=== PATIENT | female | born 1990 | race Asian ===

== ENCOUNTER → 2017-05-23 08:22 | Day surgery (SDC) | payer OTHER ==
--- NOTE | 2017-05-12 | HP ---
PREOPERATIVE HISTORY AND PHYSICAL: DATE OF ADMISSION/SURGERY: 05/23/17 ATTENDING SURGEON: Rose Curry MD. * (DICTATED BY HONEY RIOS) PROCEDURE: Right knee arthroscopy, possible meniscus repair, anterior cruciate ligament reconstruction using bone patellar tendon bone autograft. CHIEF COMPLAINT: Right knee pain and instability. 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 She has failed conservative measures and has therefore, agreed to undergo a right knee arthroscopy, possible meniscus repair and anterior cruciate ligament reconstruction using bone patellar tendon bone autograft with Dr. Curry on 05/23/17. PAST MEDICAL HISTORY: Denies current problems. PAST SURGICAL HISTORY: No prior surgeries. CURRENT MEDICATIONS: control. ALLERGIES: SULFA DRUGS. FAMILY HISTORY: Denies pertinent family history. SOCIAL HISTORY: She lives by herself. 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 She drinks occasional alcohol. She denies tobacco use. She is right hand dominant. REVIEW OF SYSTEMS: A 14-point review of systems was reviewed with the patient. Positive for the current complaint, otherwise negative. PHYSICAL EXAMINATION GENERAL: Well-developed, well-nourished 26-year-old female, in no acute distress. Alert and oriented x3. Appropriate mood and affect. VITAL SIGNS: Height 64.5, weight 162. Pulse 66, blood pressure 104/62, respiratory rate 16. BMI 27.4. HEENT: Normocephalic, atraumatic. PERRLA. Throat clear. NECK: Supple. PULMONARY: Lungs are clear to auscultation bilaterally. No wheezing, rhonchi, or rales. CARDIOVASCULAR: Regular rate and rhythm. S1 and S2. No murmurs, gallops, or rubs. No edema. ABDOMEN: Positive bowel sounds, soft, nontender. NEUROLOGIC: Alert and oriented x3. Cranial nerves grossly intact. Sensation intact to light touch. MUSCULOSKELETAL: Right lower extremity skin is intact. No warmth or erythema. Mild effusion. Tenderness over the medial joint line, nontender laterally. Range of motion 0 to 125. Positive Lucy. 2A Shellie. Negative posterior drawer. Stable to varus and valgus stress. Calves soft and nontender. +2 dorsalis pedis pulse. Sensation intact to light touch distally. STUDIES: MRI of the right knee reveal high-grade partial thickness tear of the ACL and a medial meniscus tear. IMPRESSION: Right knee ACL tear, medial meniscus tear. PLAN: The patient is scheduled to undergo a right knee arthroscopy, possible meniscus repair, and anterior cruciate ligament reconstruction with Dr. Curry on 05/23/17. She will return to the office 8 days postop for followup and suture removal. Percocet will be used for postop pain management and Keflex for antibiotic prophylaxis. HONEY RIOS [id number]/[facility] #: [id number] EVELIA
[~2017-05-23 08:22] MED LIST: Buffered Lidocaine 0.9% SYRIN* 5 ML/SYR SYRINGE INTRADERM ONE; Buffered Lidocaine 0.9% SYRIN* 5 ML/SYR SYRINGE ONE; Bupivacaine 0.25% SDV* 30 ML ONE; Dexamethasone IV* 4 MG/ML 1 ML (4 MG) ONE; Famotidine IV* 10 MG/ML 2 ML (20 mg) IV ONE; Famotidine IV* 10 MG/ML 2 ML (20 mg) ONE; KETAMINE HCL* 50 MG/ML 10 ML VIAL ONE; Ketorolac INJ* 30 MG/ML 1 ML VIAL ONE; Lidocaine 2% PF * 5 ML VIAL ONE; Midazolam* 1 MG/ML 5 ML VIAL (5 MG) ONE; Morphine INJ* 10 MG/ML 1 ML SYRINGE ONE; Morphine INJ* 2 MG/ML 1 ML SYRINGE IV PRN; Ondansetron INJ* 2 MG/ML VIAL ONE; PROCHLORPERAZINE INJ 5 MG/ML 2 ML VIAL IV PRN; PROCHLORPERAZINE INJ 5 MG/ML 2 ML VIAL ONE; Propofol* 10 MG/ML 20 ML BTL IV PUSH ONE; Scopolamine 1.5 mg* PATCH ONE; Scopolamine 1.5 mg* PATCH TRANSDERM PRN; Scopolomine PATCH Remove* 1 NOTE MISC PATCH OFF ONE; ceFAZolin 2 GM PREMIX (*) 50 ML IVPB ONE; fentaNYL* 50 MCG/ML 2 ML VIAL (100 MCG VIAL) ONE; oxyCODONE/Acetamin 5/325 MG* TAB ONE; oxyCODONE/Acetamin 5/325 MG* TAB PO PRN
[2017-05-23] MEDS: fentaNYL* 50 MCG/ML 2 ML VIAL (100 MCG VIAL) IV PRN ×4 (12:56→13:14)
[2017-05-23 15:07] VITALS: BP 123/69
--- NOTE | 2017-05-24 05:40 | OP ---
DATE OF OPERATION: 05/23/17 [facility] DATE OF : 89 SURGEON: Rose Curry MD HAND CEMENTER: HONEY Sinclair. The traffic assistant was needed for the entirety of the case to help with positioning, retraction, and was utilized throughout all portion of the case. ANESTHESIOLOGIST: Dr. Lopez. ANESTHESIA: General. PRE-OP DIAGNOSIS: Right knee grade 3 ACL rupture with medial meniscus tear. POST-OP DIAGNOSIS: Grade 3 ACL rupture, medial meniscus tear, lateral meniscus fraying. OPERATIVE PROCEDURE: Right knee arthroscopy with ACL reconstruction using BTB autograft, medial meniscus repair, partial lateral meniscectomy. COMPLICATIONS: None. ESTIMATED BLOOD LOSS: Minimal. TOURNIQUET TIME: 250 mmHg for 29 minutes. IMPLANTS USED: Langston [employer] Nephew SoftSilk, 7 x 25 and 9 x 25 as well as 1 Fast Fix 360. 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 She elected to proceed with operative treatment including ACL reconstruction with autograft. Risks and benefits of surgery were discussed at length including, but not limited to bleeding, infection, damage to nerves, vessels, surrounding structures, the wound nonhealing, risk of pain, risk of anesthesia, risk of DVT, scarring, stiffness, incomplete relief of symptoms, need for further surgery, failure to repair. She has elected to proceed. DESCRIPTION OF PROCEDURE: The patient was greeted in the preoperative area by the attending surgeon. The correct extremity was marked and consent was confirmed. The patient was then brought back to the operating suite where she was placed in supine position on the operating table. She then underwent general anesthesia and LMA intubation, after which she was positioned low on the bed, the lateral post was positioned, an unsterile tourniquet was placed high on the proximal thigh and a small 10-pound beanbag was placed at the foot of the bed to keep the knee at 90 degrees. The right knee was prepped and draped in usual sterile fashion beginning with chlorhexidine soap, scrub, and alcohol wipe and a final prep of ChloraPrep. After appropriate surgical pause indicating side, site, procedure, and administration of antibiotics, the knee was intraarticularly injected with 30 cc of sterile saline. The Esmarch was used to exsanguinate the limb. A midline incision over the patellar tendon was then made sharply with a 15 blade. Soft tissues were carefully dissected to expose the paratenon, which was taken in separate layer for later closure. The tendon was exposed and found to be about 30 mm in length. The center 10 mm were then harvested using a 10 blade. Once the soft tissue was then harvested, the bone blocks were prepared to lock for a size 9 x 23 mm, patellar bone blocks. This was outlined using electrocautery device and then the sagittal saw. Inferiorly, the bone block from the tibial tubercle was 10 x 30 mm. Once this was obtained, the graft was secured on the back table to allow for appropriate sized tunnel. A whipstitch was placed through the tibial end of the grasp and #5 Ethibond sutures were passed through the bone block on the patellar side as well as one on the tibial side. This was then wrapped in damp saline soaked gauze and kept on the back table. This was all done while the traffic assistant was closing the patellar tendon in an interrupted fashion. Once that was complete, the tourniquet was released for a total time of 29 minutes. The lateral portals were made through the capsule. Using 11 blade, scope was brought to the joint and the joint was examined. The patellofemoral joint had grade 0 to 1 changes, there was abundant synovitis anteriorly. The anterior medial portal was made in an outside-in fashion with needle localization. Once this was done, the shaver was then used to move the synovitis anteriorly. The ACL was identified and there was small remnant that was still intact, but 80% or more of the tendon had torn off the femoral surface. The biters and dylan were used to debride the stump pad as well as to remove the ACL, the lateral wall was prepared using the electrocautery device. There was a rather narrow notch posteriorly, therefore the kenn was then used to do a small notchplasty, all the debris was removed after the notchplasty was complete. At this point, the scope was positioned in the suprapatellar pouch and there were grade 0 to 1 changes of the patella and the trochlea. Medial and lateral gutters were checked and without any loose body. The scope was positioned in the medial joint and there was a meniscus tear in the red-white zone, this was aggravated, and there was small areas of bleeding, therefore decision was made to repair this. This was an unstable tear subluxing the joint that was full thickness. One Langston and Nephew Fast Fix was then used to stabilize this. The remainder of the meniscus was intact. The knee was then placed in a [id number] position and the lateral tibial plateau had a small area of grade 1 chondral changes that was debrided back, a small chondroplasty was done and a lateral meniscal repair had mild unstable tearing along the posterior root, evidence of a previous tear that had healed back. The unstable flap was then debrided back using the shaver as well as the small fraying of the body. The lateral femoral condyle had grade 0 changes. The knee was then placed to 90 degrees, a [place] awl was used to harrison the presumed femoral position as a rate examiner hole. This was used as record points for placement of the tunnel. Next, the tibial footprint was prepared using the electrocautery device as well as the shaver. The tip to tip guide was then placed around 50 to 55 degrees at the center of the tibial footprint. The guidewire was then placed. Once the appropriate position was established, the size 10-mm full-bore reamer was then used to drill the tunnel, excess bone was kept for bone grafting the patellar defects. The tunnel was then prepared using the shaver as well as the ball rasp to remove any rough edges. The soft tissue removed from the tibial tunnel. The tunnel was in good position. At this point, attention was directed to the femoral tunnel. The knee was then carefully hyperflexed to 130 degrees. Langston and Nephew straight guide was then placed and then the deep tendon was then advanced in to the center of the footprint and down to the lateral cortex down to the IT band and skin. A size 9 -mm low profile reamer was then used to drill to approximately 27 mm of depth. All excess bone and debris was removed. The tunnel was checked and found to be in the appropriate position. All excess bone was removed. The tunnel was then notched for later placement of the screw. A #2 Ti-Cron suture was passed through the end of the Beath pin, advanced through the femoral tunnel in an anterograde fashion through the tibial tunnel. The graft was then brought to the back table, was then advanced under arthroscopic visualization and was well seated into the femoral tunnel and secured. A 7 x 25 mm SoftSilk screw was then used to secure the graft in good position, this had excellent purchase. The knee was then taken in full extension, found not to impinge anteriorly and hyperextension was obtained. The knee was then cycled 15 times with no loosening of the graft or alteration of the position. The scope was brought back to the joint to confirm that the graft was still in good position. At this point, the knee was then placed to about 20 degrees of flexion with tension on the tibial sutures and posterior drawer. A size 9 x 25 mm screw was used to secure the tibial bone block. Knee was then taken through range of motion from 0 to 135 degrees and Shellie was assessed, and found to be stable. The scope was brought back to the joint and the ACL was in good position, the scope was then placed in the medial compartment and there was no evidence of any instability of the meniscus flap and it was stable. All fluid and debris was removed from the knee. The excess bone block from the tibial tunnel was then removed using sagittal saw. The wounds were copiously irrigated with sterile saline. The harvest site was then exposed and excess bone graft was placed into the patellar defect, this was then oversewn with 0 Vicryl. The rest of the bone graft that was obtained was placed in the tibial bone defect. The paratenon was then closed with 2-0 Vicryl in a running fashion. The wound was closed in layers with subcutaneous layers with 2-0 Vicryl and the skin with 3-0 Monocryl. Sterile dressings were applied. The wound and the knee were injected with 0.25% Marcaine plain. Sterile dressings were applied. Cryo/Cuff as well as a brace were locked marked from 0 to 90 degrees. She was awoken from anesthesia and transferred to PACU in stable condition. POSTOPERATIVE PLAN: She will be nonweightbearing with range of motion 0 to 90 degrees for 4 weeks. She will be discharged on pain medications as well as antibiotics. DVT prophylaxis was considered, but deferred. She will only be placed on aspirin postoperatively. I will see the patient back in 6 to 8 days. [id number]/[facility] #: [id number] EVELIA
== END | disposition home or self-care (01) ==
LOC: OR 08:22
PROVIDERS: ATTEND Orthopaedic Surgery
DX: S83.511A Sprain of anterior cruciate ligament of right knee, initial encounter (principal); S83.241A Other tear of medial meniscus, current injury, right knee, initial encounter; S83.281A Other tear of lateral meniscus, current injury, right knee, initial encounter; X58.XXXA Exposure to other specified factors, initial encounter; Y93.73 Activity, racquet and hand sports; Y92.9 Unspecified place or not applicable; Z88.2 Allergy status to sulfonamides
CPT/HCPCS: 81025; A9270-GY; C1713; J0690; J0780; J1100; J1885; J2250; J2270; J2405; J2704; J3010

== ENCOUNTER 2017-06-01 14:35 | Emergency (ER) | payer OTHER ==
[2017-06-01 16:39] LABS: Hematocrit 42 % (35-47); Hemoglobin 13.9 g/dl (12.0-16.0); Mean Corpuscular HGB Conc 34 g/dl (31-36); Mean Corpuscular Hemoglobin 30 pg (27-31); Mean Corpuscular Volume 89 fL (80-97); Mean Platelet Volume 8 um3 (7.4-10.4); Red Blood Count 4.65 10^6/ul (4.0-5.4); Red Cell Distribution Width 12 % (10.5-15); White Blood Count 6.9 10^3/ul (3.5-10.8)
[2017-06-01 16:54] LABS: Albumin 4.5 g/dL (3.2-5.2); BUN/Creatinine Ratio 15.7 (8-20); Calcium 9.8 mg/dL (8.6-10.3); EGFR African American 130.1 (>60); EGFR Non-African American 101.1 (>60); Globulin 3.5 g/dL (2-4); Potassium 3.6 mmol/L (3.5-5.0); Total Bilirubin 0.5 mg/dL (0.2-1.0)
[2017-06-01] MEDS ORDERED: Enoxaparin(*) 80 MG/0.8 ML SYR SUBCUT ONE (17:04)
[2017-06-01] MEDS ORDERED: Warfarin TAB(*) 5 MG PO ONE (17:05)
--- NOTE | 2017-06-01 17:48 | ED ---
Master Appiah Benjamin, scribed for Adalberto Chávez MD on 06/01/17 at 1613 . Lower Extremity - HPI Summary HPI Summary: 26yo female s/p right ACL repair on 05/23/[address] Curry was sent from Ultrasound for known DVT. Pt has some swelling and pain on her right leg after surgery, but aside from that, no acute pain or swelling. Pt denies any SOB or cough. Pt was adopted and doesnt know whether there is a FHx of blood clots. Pt is on BCPs. - History of Current Complaint Chief Complaint: EDGeneral Stated Complaint: RT LEG PAIN Time Seen by Provider: 06/01/17 15:38 Hx Obtained From: Patient Severity Initially: Moderate Severity Currently: Moderate Pain Intensity: 7 Pain Scale Used: 0-10 Numeric Location: Is Discrete @ - RLE Associated Signs And Symptoms: Positive: Swelling Aggravating Factor(s): Nothing Alleviating Factor(s): Nothing - Allergies/Home Medications Allergies/Adverse Reactions: Allergies Allergy/AdvReac Type Severity Reaction Status Date / Time Sulfa Antibiotics Allergy Intermediate Vomiting Verified 05/23/17 08:46 PMH/Surg Hx/FS Hx/Imm Hx Musculoskeletal History: Reports: Other Musculoskeletal History - INJURY TO RIGHT KNEE Sensory History: Denies: Hx Contacts or Glasses - CONTACTS ONLY WILL BRING FLUID AND CASES ON DOS, Hx Hearing Aid Opthamlomology History: Denies: Hx Contacts or Glasses - CONTACTS ONLY WILL BRING FLUID AND CASES ON DOS Neurological History: Reports: Hx Headaches - SINUS HEADACHE OCCASIONAL SEASONAL - Surgical History Hx Anesthesia Reactions: No Infectious Disease History: Denies: Traveled Outside the [place] in Last 30 Days - Family History Known Family History: Positive: Unknown - adopted - Social History Occupation: Student Lives: Dormitory/Roommates Alcohol Use: None Substance Use Type: Reports: Marijuana Substance Use Comment - Amount & Last Used: OCCASIONAL USE Smoking Status (MU): Never Smoked Tobacco Review of Systems Constitutional: Negative Eyes: Negative ENT: Negative Cardiovascular: Negative Respiratory: Negative Gastrointestinal: Negative Genitourinary: Negative Positive: Myalgia - RLE, Edema - RLE Skin: Negative Neurological: Negative Psychological: Normal All Other Systems Reviewed And Are Negative: Yes Physical Exam Triage Information Reviewed: Yes Vital Signs On Initial Exam: Initial Vitals Temp Pulse Resp BP Pulse Ox 96.8 F 62 17 120/76 100 06/01/17 14:37 09/15/17 14:37 06/01/17 14:37 06/01/17 14:37 06/01/17 14:37 Vital Signs Reviewed: Yes Appearance: Positive: Well-Appearing, No Pain Distress Skin: Positive: Skin Color Reflects Adequate Perfusion Head/Face: Positive: Normal Head/Face Inspection Eyes: Positive: EOMI Neck: Positive: Nontender Respiratory/Lung Sounds: Positive: Clear to Auscultation, Breath Sounds Present Cardiovascular: Positive: RRR. Negative: Murmur Abdomen Description: Positive: Nontender Musculoskeletal: Positive: Other - right knee in immobilizer, right calf mild swollen compare to the left one. Neurological: Positive: Sensory/Motor Intact, Alert, Oriented to Person Place, Time, CN Intact II-III Diagnostics - Vital Signs Vital Signs Temp Pulse Resp BP Pulse Ox 06/01/17 14:37 96.8 F 62 17 120/76 100 - Laboratory Result Diagrams: 06/01/17 16:27 06/01/17 16:27 Lab Statement: Any lab studies that have been ordered have been reviewed, and results considered in the medical decision making process. Re-Evaluation - Re-Evaluation First Eval Re-Evaluation Time: 17:09 Change: Improved Comment: Dr Andersen called back for Dr Curry, and agrees with the plan for lovenox and coumadin and follow up with [place] tomorrow. He will call Dr Curry and let him know of the plan for lovenox and coumadin for the post op DVT. Lower Extremity Course/Dx - Course Course Of Treatment: Reviewed pts medication and allergy lists. Blood pressure noted. Discussed with Sherine Choudhary N.P. from [facility]. Arranged an appointment tomorrow at 11am. Pt will be given lovanox and coumadin for anticoagulation. Discussed with Dr. Andersen (Ortho) at [address] Curry (Ortho) at [address]12 hour[address] discussed with Dr Andersen who was bus and sys integration senior manager, and he agrees with the treatment plan. Dr Brown called and feels this is an appropriate treatment plan as well, and is aware that [facility] will be following the patient for the lovenox and coumadin. Sherine Choudhary NP at [facility] asked me to give the patient her first dose of coumadin here this evening as well as the Lovenox injection. The will see the patient at [facility] and educate the patient on the Lovenox injections tomorrow morning and further management of the DVT. Eland will write for further meds for her anticoagulation tomorrow morning. - Diagnoses Provider Diagnoses: DVT (deep venous thrombosis) Discharge - Discharge Plan Condition: Good Disposition: HOME Patient Education Materials: Deep Venous Thrombosis (ED) Referrals: Rose Curry MD [Medical Doctor] - [facility] [Primary Care Provider] - 06/02/17 10:40 am Additional Instructions: Do not take the Naproxen or the Oral contraceptives. The documentation as recorded by the Master horowitz Benjamin accurately reflects the service I personally performed and the decisions made by , Adalberto Chávez MD.
[2017-06-01 18:26] VITALS: BP 104/56
== END 2017-06-01 18:25 | disposition home or self-care (01) ==
LOC: ED 14:35
DX: I82.4Z1 Acute embolism and thrombosis of unspecified deep veins of right distal lower extremity (principal); Z88.2 Allergy status to sulfonamides
CPT/HCPCS: 36415; 80053; 84702; 85025; 85610; 85730; 99282; A9270-GY; J1650